=== PATIENT | male | born 1985 | race Caucasian/White ===

== ENCOUNTER → 2021-02-06 | Day surgery (SDC) | payer OTHER ==
[~2021-02-06] VITALS: Ht 175.3 cm; Wt 82.0 kg
[~2021-02-06] MED LIST: GLYCOPYRROLATE 1 MG/5 ML VIAL. ONE; IV RINGERS,LACTATED 1000ML 1,000 ML IV SCH; LIDOCAINE 2% PF 5 ML VIAL. ONE; PROPOFOL 10 MG/ML (20ML) VIAL. IV ONE
[2021-02-06 06:54] VITALS: BP 137/82
[2021-02-06 08:03] VITALS: BP 125/75
--- NOTE | 2021-02-11 09:11 | PATHOLOGY ---
[facility] Accession Number: [id number] . 01 Material submitted: . PART A: esophagus - DISTAL ESOPHAGUS BIOPSY. Modifiers: distal PART B: sigmoid colon - SIGMOID POLYP . 01 Clinical history: . GERD GI BLEED EGD/COLON . 02 Diagnosis: A. Esophageal biopsies, distal esophagus: - Reflux esophagitis. . B. Colon biopsy, sigmoid polyp: - Hyperplastic polyp. . (JPM:lisa; 02/10/2021) MBR 02/10/2021 1932 Local . 02 Comment: Sections of the distal esophageal biopsy reveal segments of hyperplastic squamous esophageal mucosa consistent with reflux esophagitis. There is no evidence of Rockwell's change, dysplasia, or malignancy. . Sections of the sigmoid colon biopsy reveal a hyperplastic polyp. There are no adenomatous changes or evidence of malignancy. (JENNIFERM:lisa; 02/10/2021) . 02 Electronically signed: . Mason Cooper MD, Pathologist NPI- [id number] . 01 Gross description: . A. Received in formalin labeled "Alfredo Abrams, distal esophagus biopsy" are multiple fragments of sam-brown soft tissue measuring in aggregate 1.4 x 0.3 x 0.2 cm. The specimen is submitted entirely in A1. . B. Received in formalin labeled "Alfredo Abrams sigmoid polyp" is a fragment of sam-brown soft tissue measuring 0.6 x 0.5 x 0.3 cm. The specimen is submitted entirely in B1. ([facility]; 02/09/2021) GZA/GZA 02/09/2021 1010 Local . 02 Pathologist provided ICD-10: K21.00, K63.5 . 02 CPT . 413802, 642310 Specimen Comment: A courtesy copy of this report has been sent to [phone] Specimen Comment: Report sent to Performed at: 01 [facility] [address], [place] [id number] MD Kofi Zacarias MD Phone: [phone] Performed at: 02 [facility] [address] [place], [place] [id number] MD Mason Cooper MD Phone: [phone]
== END | disposition home or self-care (01) ==
LOC: SURG 06:25
PROVIDERS: ATTEND Internal Medicine Gastroenterology
DX: K92.2 Gastrointestinal hemorrhage, unspecified (principal); K64.0 First degree hemorrhoids; K63.5 Polyp of colon; R12 Heartburn; R11.2 Nausea with vomiting, unspecified; K21.00 Gastro-esophageal reflux disease with esophagitis, without bleeding; K63.89 Other specified diseases of intestine; K31.89 Other diseases of stomach and duodenum; G47.30 Sleep apnea, unspecified; F41.9 Anxiety disorder, unspecified; F32.9 Major depressive disorder, single episode, unspecified; Z86.010 Personal history of colon polyps; Z87.891 Personal history of nicotine dependence; Z72.89 Other problems related to lifestyle; Z98.890 Other specified postprocedural states; Z20.822 Contact with and (suspected) exposure to COVID-19
CPT/HCPCS: 43239; 45385; 87426; 88305; J2704; J3490; 45378